=== PATIENT | female | born 1980 | race Caucasian/White ===

== ENCOUNTER 2021-12-03 10:15 | Emergency (ER) | payer MEDICAID, SELFPAY ==
[2021-12-03 10:25] VITALS: BP 108/70; PULSE 88; RESP 12; TEMP 36.8; O2SAT 98; BMI 36.2
--- NOTE | 2021-12-03 11:13 | ED.GENADULT ---
HPI - General Adult General Time Seen by Provider: 11:12 Date Seen: 12/03/21 Chief complaint: Unspecified Complaint, Adult Stated complaint: Headache Time Seen by Provider: 12/03/21 10:53 Source: patient Mode of arrival: ambulatory Limitations: no limitations History of Present Illness HPI narrative: The patient is a 41-year-old female presents with her family who were also sick. She has had a fever headache some body aches some intermittent abdominal pain over the last couple of days. Family has been sick with COVID like illness in this is being tested. The patient will be tested for COVID as well. She has not been vaccinated. She has a history of blood clots in her leg and is on novel anticoagulant. The patient also reports she has headaches frequently. She denies chest pain shortness of breath. Denies leg swelling, denies missing any medications terms of the blood thinner, shows takes an allergy medicine. Related Data Home Medications Medication Instructions Recorded Confirmed loratadine-pseudoephedrine ER 10 tab PO 12/03/21 mg-240 mg tablet,extended [id number] (lorata-dine D) rivaroxaban 20 mg tablet (Xarelto) mg 12/03/21 Allergies Allergy/AdvReac Type Severity Reaction Status Date / Time pollen extracts Allergy Unknown Verified 12/03/21 10:48 Review of Systems Status of ROS: Reports: 6 or more systems reviewed and unremarkable except as noted in History and below PFSH PFS Social History Smoking Status: Former smoker How often do you have a drink containing alcohol: monthly or less AUDIT-C Alcohol total score: 1 Non-prescribed substance use: denies use Exam Narrative: Exam Narrative: In general patient is in no apparent distress ambulating about the room. Vital signs unremarkable HEENT is unremarkable, mouth somewhat dry Chest is clear Heart rate and rhythm regular without murmur Abdomen benign soft, nontender, no palpable masses Extremities are no edema neurologic nonfocal Skin is warm and dry Const: Vital Signs, click to edit/add: Vital Signs - 24 hr 12/03/21 10:25 Temperature 98.3 F Pulse Rate [Pulse Oximeter] 88 Respiratory Rate 12 Blood Pressure [Ri ght Upper Arm] 108/70 Pulse Oximetry 98 Course Vital Signs Vital signs: Initial Vital Signs Temperature 98.3 F 12/03/21 10:25 Temperature Source Temporal Artery Scan 12/03/21 10:25 Pulse Rate 88 12/03/21 10:25 Pulse Rhythm 12/03/21 10:25 Respiratory Rate 12 12/03/21 10:25 Blood Pressure 108/70 12/03/21 10:25 Blood Pressure Mean 82 12/03/21 10:25 Blood Pressure Position Sitting 12/03/21 10:25 Pulse Oximetry 98 12/03/21 10:25 Oxygen Delivery Method 12/03/21 10:25 Vital Signs Temperature 98.3 F 12/03/21 10:25 Pulse Rate 88 12/03/21 10:25 Respiratory Rate 12 12/03/21 10:25 Blood Pressure 108/70 12/03/21 10:25 Pulse Oximetry 98 12/03/21 10:25 Temperature 98.3 F 12/03/21 10:25 Pulse Rate 88 12/03/21 10:25 Respiratory Rate 12 12/03/21 10:25 Blood Pressure 108/70 12/03/21 10:25 Pulse Oximetry 98 12/03/21 10:25 Medical Decision Making MDM Narrative Medical decision making narrative: Patient's family has been ill with a similar type viral illness, suspect she has the same, and this could be precipitating her headache. No meningitic signs. Will give IV fluids and pain medication. The patient denies Will check for COVID, labs, electrolytes. Will use Toradol Benadryl Reglan and IV fluid for headache management. Addendum: The patient test positive for COVID, will be allowed to be discharged home after completion medication. Update her regular physician within the next couple of days. Lab Data Labs: Lab Results 12/03/21 Range/Units 10:50 SARS-CoV-2 (PCR) POSITIVE (Negative) Discharge Plan Discharge Clinical Impression: Acute viral syndrome, Headache Patient Disposition: Home w/ Parent or Adult Condition: Improved Additional Instructions: Rest, fluids, Tylenol and Motrin as needed, update primary care doctor in the next 1-2 days. Return to ER sooner problems concerns difficulty. Activity Level: Light activity Discharge Diet: Regular Prescriptions: No Action loratadine-pseudoephedrine [lorata-dine D] 10-240 mg tablet extended release 24 hr PO 0RF Label Comments: TAKE ONE TABLET BY MOUTH EVERY DAY Xarelto 20 mg tablet 0RF Stand Alone Forms: [facility] Instructions
[2021-12-03] MEDS: diphenhydrAMINE 50 MG/ML inj 25 MG IVP (11:40)
[2021-12-03] MEDS: ACETAMINOPHEN 500 MG TABLET 1000 MG PO (11:40)
[2021-12-03] MEDS: KETOROLAC 30 MG/ML inj IVP (11:41)
[2021-12-03] MEDS: METOCLOPRAMIDE HCL 10 MG in 0.9 % SODIUM CHLORIDE 100 ml 100 ML 300 MG IV (11:41)
[2021-12-03] MEDS: 0.9 % SODIUM CHLORIDE 1000 ml 1,000 ML 1200 ML IV (11:41)
[2021-12-03 11:55] LABS: SARS PCR* POSITIVE (Negative)
[2021-12-03 11:56] LABS: Basophils Percent Auto 0.6 % (0.0-3.0); Hematocrit 42.4 % (33.0-51.0); Hemoglobin* 13.4 gm/dL (12.0-16.0); Immature Granulocytes Abs Auto 0.01 K/uL (0.00-0.30); Lymphocytes Percent Auto 32.6 % (20-44); Mean Corpuscular HGB Conc 32 gm/dL (32-36); Mean Corpuscular Hemoglobin 28 pg (26-34); Mean Corpuscular Volume 88 fL (80-100); Monocytes Percent Auto 9.4 % (0.0-11.0); Neutrophils Percent Auto 57.1 % (42.0-72.0); Platelet Count* 186 K/uL (140-440); RDW Coefficient of Variation % 13.1 % (11.5-15.5); Red Blood Count 4.84 m/uL (4.00-5.20); White Blood Count* 3.41 K/uL (4.50-11.00)
[2021-12-03 12:06] LABS: Slide Review Reflex No
[2021-12-03 12:12] LABS: Albumin* 4.2 g/dL (3.3-5.0); Chloride* 101 mmol/L (96-114)
[2021-12-03 12:13] LABS: Potassium* 3.7 mmol/L (3.6-5.1); Sodium* 139 mmol/L (135-149)
[2021-12-03 12:15] LABS: Carbon Dioxide* 32 mmol/L (20-32); Creatinine* 0.7 mg/dL (0.5-1.5); Est. Creatinine Clearance* 99.01; Estimated Glomerular Filt Rate 111.36
[2021-12-03 12:16] LABS: Alanine Aminotransferase* 58 U/L (4-35); Alkaline Phosphatase* 52 U/L (40-150); Aspartate Amino Transferase* 30 U/L (12-35); Bilirubin Direct* 0.3 mg/dL (0.0-0.5); Bilirubin Total* 0.4 mg/dL (0.1-1.5); Blood Urea Nitrogen* 10 mg/dL (5-24); Calcium* 8.7 mg/dL (8.4-10.6); Glucose* 105 mg/dL (60-115)
== END 2021-12-03 13:17 | disposition home or self-care (01) ==
LOC: ED 11:21
PROVIDERS: Emergency Provider Family Medicine; PCP Family Medicine
DX: R51.9 Headache, unspecified (principal); U07.1 COVID-19
CPT/HCPCS: 36415; 80048; 80076; 85025; 87635; 96374; 96375; 99284; A9270; J1200; J1885; J2765; J7030